=== PATIENT | male | born 1950 | race Caucasian/White ===

== ENCOUNTER 2016-08-30 01:28 | Day surgery (SDC) | payer MEDICARE, OTHER ==
[~2016-08-30] VITALS: Ht 177.8 cm; Wt 102.0 kg
[~2016-08-30 01:28] MED LIST: LOSA25TA21 PO; OMEP20CA11 PO; TADA5TAB2 PO; ZOLP10TA5 PO
[2016-08-30] MEDS ORDERED: Propofol 10,000 mCg/mL 20 mL Inj ONE (01:29)
[2016-08-30] MEDS ORDERED: Lactated Ringer's 1,000 ML IV ONE (06:00)
[2016-08-30 09:15] VITALS: BP 156/90; PULSE 65; RESP 14; O2SAT 98
[2016-08-30] MEDS ORDERED: Ondansetron 2 mg/mL 2 mL Inj IVPUSH PRN (09:15)
[2016-08-30] MEDS ORDERED: Atropine 0.4 mg/mL Inj IVPUSH PRN (09:15)
[2016-08-30] MEDS ORDERED: MetoCLOpramide 5 mg/mL 2 mL Inj IVPUSH PRN (09:15)
[2016-08-30] MEDS: Lactated Ringer's 1,000 ML IV SCH ×2 (09:26→10:21)
--- NOTE | 2016-08-30 09:29 | PCM.HPANE ---
Patient Data Date of Service: August 30, 2016 Surgeon Admitting Provider: Attending Provider:Richie Burton MD Primary Care Physician:Amber Arellano MD Other Provider:Tabatha Perez Anesthesia Reason for Visit Screening Ht/WT & BMI Height (Feet): 5 Height (Inches): 10 Weight (Kilograms): 102 Body Mass Index 32.00 Allergies Coded Allergies: No Known Drug Allergies (Verified Allergy, Unknown, 08/29/16) Past Anesthesia History Anesthesia History: Denies:: Anesthesia Reactions, Fam Anesthesia Reaction, Fam Malignant Hypertherm, Malignant Hyperthermia Diabetes History Hx Diabetes?: No MRSA MRSA: No Medications Blood Thinner: Aspirin Last Dose Blood Thinner: August 27, 2016 Home Meds Incl Beta Mirtha: Yes Date Beta Mirtha Taken: August 30, 2016 Time Beta Mirtha Taken: 629 Reported Medications Losartan Potassium 25 Mg [id number] Mg PO DAILY 08/29/16 Omeprazole 20 Mg Capsule.dr20 Mg PO DAILY Ref 0 08/29/16 Tadalafil (Cialis)5 Mg Tablet5 Mg PO PRN PRN ED Ref 0 As directed by physician. 08/29/16 Zolpidem 10 Mg [id number] Mg PO HS PRN For Insomnia Ref 0 08/29/16 History History of ENT Problems?: No HEENT History: Denies:: Abnormal Airway Cataracts Difficult Intubation Dysphagia Glaucoma Hearing Problem Sinus Problem TMJ Denture Type: None Teeth Condition: Within Normal Limits Hx of Heart Problems?: Yes Cardiovascular History: Positive for:: Hypertension Hx of Respiratory Problem?: Yes Respiratory History: Positive for:: Use of C-PAP Machine Hx Neurologic Problems?: No Neurological History: Denies:: CVA Hx of GI Problems?: No Hx of Problems?: No Hx Musculoskeletal Problems?: No Hx of Psycho/Social Problems?: No Hx Surgeries?: Yes (T&A) Hx Any Other Health Problems?: No Hx Diabetes: No Hx Alcohol Use: Yes (1/NITE)Hx Substance Use: NoHave You Smoked inLast 12 mo: No Stop/Bang Treated for Sleep Apnea?: Yes Do You Have a CPAP Machine?: Yes PIERO Risk Assessment: High Risk, =/>3 Yes PIERO Category 4 OutPt Procedure: Yes Risk Assessment Category Category 1A: Patient has history of documented sleep apnea, and HAS NOT received any narcotic, sedative or anesthesia administration during this stay. Category 1B: Patient has history of documented sleep apnea, and HAS received any narcotic , sedative or anesthesia administration during this stay Category 2: Patient has SUSPECTED Obstructive Sleep Apnea, and HAS received any narcotic , sedative or anesthesia administration during this stay. Category 3: Patient has SUSPECTED Obstructive Sleep Apnea and HAS NOT received narcotic, sedative or anesthesia administration during this stay. Category 4: Outpatient in Procedural Areas with known sleep apnea or who screen positive for High Risk via the STOP/BANG questionnaire. Exam Exam Vital Signs Vital Signs Date Time Temp Pulse Resp B/P Pulse Ox O2 Delivery O2 Flow Rate FiO2 08/30/16 09:15 36.7 65 14 156/90 98 Room Air General Appearance: Alert, Oriented X3, Cooperative HEENT/AIRWAY: MP 3, Neck Movement (Full, ), Mouth Opening (Wide) Lungs: Clear to Auscultation, Normal Air Movement Heart: Regular Rate/Rhythm, Normal S1, Normal S2 Plan Impression Patient chart reviewed, patient interviewed and anesthestic plan with risks, benefits, and alternatives discussed, and informed consent obtained. NPO per Anesth. Guidelines: Yes ASA Physical Status: ASA2 Mod Systemic Disease Anesthetic Plan: MAC Bene/Risks/Altern/Consents: Yes HP Complete Prior to Induction: Yes Mayito Mari MD August 30, 2016 09:24
[2016-08-30 10:30] VITALS: BP 107/63; PULSE 56; RESP 16; O2SAT 97
[2016-08-30 10:40] VITALS: BP 131/73; PULSE 55; RESP 16; O2SAT 99
--- NOTE | 2016-08-30 10:40 | PCM.ANEP1 ---
Post Anesthesia Phase 1 PACU Phase 1 Assessment Date of Service: August 30, 2016 Vital Signs Vital Signs Date Time Temp Pulse Resp B/P Pulse Ox O2 Delivery O2 Flow Rate FiO2 08/30/16 10:30 56 16 107/63 97 Room Air 08/30/16 09:15 36.7 65 14 156/90 98 Room Air Anesthetic Administered: MAC Level of Alertness: Awake, talking HOWARD's with Equal Strength: Yes Pain: No Nausea or Vomiting: No Oxygen Delivery: Room Air Lungs: Normal Air Movement Dermatome Level: Full Sensation Complications: No Follow up Care: No Patient Instructions Provided: Yes Mayito Mari MD August 30, 2016 10:40
[2016-08-30 10:50] VITALS: BP 122/68; PULSE 53; RESP 16; O2SAT 99
--- NOTE | 2016-08-30 11:27 | ENDO ---
[address] [address] ENDOSCOPY PROCEDURE PATIENT: LIUDMILA HUBER : 1950 MR#: [id number] ADMIT: 08/30/2016 JOB ID: [id number] DATE OF SERVICE: 08/30/2016 PREOPERATIVE DIAGNOSIS: Colorectal cancer screening. POSTOPERATIVE DIAGNOSIS: A 3 mm hepatic flexure polyp. PROCEDURE: Incomplete colonoscopy to hepatic flexure with cold snare polypectomy. SURGEON: Richie Burton MD. INDICATIONS: A 66-year-old man who 10 years ago had an incomplete colonoscopy. A followup barium enema showed a tortuous colon but was otherwise normal. He is now here for followup colonoscopy for colorectal cancer screening. FINDINGS: He had a fair prep. The scope was advanced to the hepatic flexure region. Despite change of position, abdominal wall compression with two people and sedation by Anesthesia, the scope could not be advanced. Also, in the hepatic flexure was a small polyp that I removed with a snare without cautery and retrieved. He had minimal sigmoid diverticulosis. Retroflexed views of the rectum and digital rectal exam were normal. DESCRIPTION OF PROCEDURE: The procedure and sedation plan was discussed with the patient and nursing staff. Dr. Bucky Mari from anesthesia provided sedation. A procedural time-out was held. A digital rectal exam was performed. Then, the Olympus PCF-H180AL video colonoscope was passed transanally, and advanced as stated above to the hepatic flexure region. Multiple changes of position and compression with two experienced people allowed advancement of the scope distally but never did I feel like I got beyond the hepatic flexure. Ultimately, however, I did see the small polyp that I removed with a snare without cautery, and it was retrieved. There was only trivial bleeding. I ultimately suspended the procedure, withdrew the scope over a 7-1/2 minute period and obtained retroflexed views. No other polyps were identified. There are no apparent complications. The patient tolerated the procedure well. PLAN: Will obtain a barium enema but will need to wait two weeks because of the polypectomy. Based on today's findings, assuming this is an adenomatous polyp, he should have a repeat colonoscopy or consider virtual colonoscopy in five years.
--- NOTE | 2016-08-31 14:48 | PATH ---
SURGICAL PATHOLOGY Attending Physician:Zoran Hong CASE STATUS: Signed Out PATIENT NAME: LIUDMILA HUBER PID: [id number] : 1950 DATE COLLECTED:08/30/2016 17:03 SPECIMEN: Colon, Biopsy CLINICAL HISTORY: 1. HEPATIC FLEXURE POLYP FINAL DIAGNOSIS: Hepatic Flexure, Polyp, Biopsy: Tubular adenoma; negative for high-grade dysplasia. ICD10: K63.5 GROSS DESCRIPTION: The specimen is received in one formalin filled container labeled with the patient's name, sublabeled "hepatic flexure polyp" and consists of a 0.3 x 0.3 x 0.2 CM portion of tissue and possible debris which is entirely submitted in one cassette. 08/30/2016 [facility] ICD-9 CODES: CPT CODES: 1: 65381 Electronically Signed Out Tessie Martinez MD [facility] Pathology [facility] [address], [place] [address] Technical component performed at [facility], [facility] [address], [place], [address]
== END 2016-08-30 23:59 | disposition home or self-care (01) ==
LOC: END 01:28
PROVIDERS: ATTEND Surgery
DX: Z12.11 Encounter for screening for malignant neoplasm of colon (principal); D12.3 Benign neoplasm of transverse colon; K57.30 Diverticulosis of large intestine without perforation or abscess without bleeding; I10 Essential (primary) hypertension; E78.2 Mixed hyperlipidemia; R73.9 Hyperglycemia, unspecified; G47.39 Other sleep apnea; N40.0 Benign prostatic hyperplasia without lower urinary tract symptoms; G25.81 Restless legs syndrome; Z85.820 Personal history of malignant melanoma of skin; Z79.82 Long term (current) use of aspirin
CPT/HCPCS: 45385; J7120